=== PATIENT | female | born 2000 | race Caucasian/White ===

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

== ENCOUNTER → 2020-11-25 | Outpatient (CLI) | payer OTHER ==
[2020-11-25 15:42] LABS: FREE THYROXINE INDEX 3.2 % (1.3-4.8); THYROID STIMULATING HORMONE 1.23 uIU/ML (0.463-3.98); THYROXINE (T4) 10.5 UG/DL (6.0-11.6); TOTAL 25(OH) VITAMIN D 12.8 NG/ML (30.0-100.0)
== END ==
LOC: M LAB 13:58
PROVIDERS: ATTEND Nurse Practitioner Psychiatric/Mental Health
DX: E03.9 Hypothyroidism, unspecified (principal); E55.9 Vitamin D deficiency, unspecified

== ENCOUNTER → 2021-08-16 | Outpatient (REF) | payer OTHER | LOC: M WUC 17:45 | PROVIDERS: ATTEND Physician Assistant | DX: N39.0 Urinary tract infection, site not specified (principal) ==

== ENCOUNTER → 2021-09-17 | Outpatient (CLI) | payer OTHER ==
[2021-09-17 16:34] LABS: BASO % 0.6 % (0.0-1.0); EOS # 0.1 10^3/uL (0.0-0.5); EOS % 1.4 % (0.0-3.0); HEMATOCRIT 43.4 % (36.0-47.0); HEMOGLOBIN 13.4 g/dl (12.0-15.5); LYMPH # 1.5 10^3/uL (1.5-5.0); MEAN CORPUSCULAR HEMOGLOBIN 28.6 pg (27.0-33.0); MEAN CORPUSCULAR HGB CONC 30.9 g/dl (32.0-36.5); MEAN CORPUSCULAR VOLUME 92.5 fl (80.0-96.0); MONO # 0.6 10^3/uL (0.0-0.8); MONO % 8.7 % (2.0-8.0); NEUTROPHILS % 68.9 % (36.0-66.0); RED BLOOD COUNT 4.69 10^6/uL (4.00-5.40); WHITE BLOOD COUNT 7.3 10^3/uL (4.0-10.0)
[2021-09-17 16:54] LABS: HCG, SERUM QUALITATIVE NEGATIVE (NEGATIVE)
[2021-09-17 17:11] LABS: ALBUMIN 3.5 GM/DL (3.2-5.2); ALT/SGPT 25 U/L (12-78); BILIRUBIN,TOTAL 0.4 MG/DL (0.2-1.0); BLOOD UREA NITROGEN 12 MG/DL (7-18); CALCIUM LEVEL 8.7 MG/DL (8.5-10.1); CARBON DIOXIDE LEVEL 27 MEQ/L (21-32); CHLORIDE LEVEL 105 MEQ/L (98-107); CREATININE FOR GFR 0.74 MG/DL (0.55-1.30); FREE T4 1.07 NG/DL (0.76-1.46); GLOMERULAR FILTRATION RATE > 60.0 (>60); GLUCOSE, FASTING 77 MG/DL (70-100); IRON (FE) 111 UG/DL (50-170); PERCENT SATURATION 26.2 % (13.2-45.0); POTASSIUM SERUM 4.1 MEQ/L (3.5-5.1); SODIUM LEVEL 138 MEQ/L (136-145); TOTAL IRON BINDING CAPACITY 423 UG/DL (250-450); TOTAL PROTEIN 7.1 GM/DL (6.4-8.2)
[2021-09-18 00:18] LABS: HEMOGLOBIN A1c 4.7 %
== END ==
LOC: M WUC 11:40
PROVIDERS: ATTEND Physician Assistant
DX: E55.9 Vitamin D deficiency, unspecified (principal); Z68.31 Body mass index [BMI] 31.0-31.9, adult; Z30.011 Encounter for initial prescription of contraceptive pills

== ENCOUNTER → 2022-07-12 | Outpatient (CLI) | payer OTHER ==
[2022-07-12 13:08] LABS: BASO % 0.3 % (0.0-1.0); EOS # 0.2 10^3/uL (0.0-0.5); EOS % 2.7 % (0.0-3.0); HEMATOCRIT 43.9 % (36.0-47.0); HEMOGLOBIN 13.5 g/dl (12.0-15.5); LYMPH # 1.3 10^3/uL (1.5-5.0); LYMPH % 20.6 % (24.0-44.0); MEAN CORPUSCULAR HEMOGLOBIN 26.3 pg (27.0-33.0); MEAN CORPUSCULAR HGB CONC 30.8 g/dl (32.0-36.5); MEAN CORPUSCULAR VOLUME 85.4 fl (80.0-96.0); MONO # 0.4 10^3/uL (0.0-0.8); MONO % 6.1 % (2.0-8.0); NEUTROPHILS # 4.5 10^3/uL (1.5-8.5); PLATELET COUNT, AUTOMATED 240 10^3/uL (150-450); RED BLOOD COUNT 5.14 10^6/uL (4.00-5.40); WHITE BLOOD COUNT 6.4 10^3/uL (4.0-10.0)
[2022-07-12 13:21] LABS: HEMOGLOBIN A1c 4.8 % (4.0-6.0)
[2022-07-12 13:32] LABS: ALBUMIN 3.6 G/DL (3.2-5.2); ALKALINE PHOSPHATASE 83 U/L (46-116); ALT/SGPT 40 U/L (7.0-40); AST/SGOT 28 U/L (<34); BILIRUBIN,TOTAL 0.3 MG/DL (0.3-1.2); BLOOD UREA NITROGEN 7 MG/DL (9-23); CALCIUM LEVEL 9.2 MG/DL (8.5-10.1); CARBON DIOXIDE LEVEL 24 MMOL/L (20-31); CHLORIDE LEVEL 106 MMOL/L (98-107); GLOMERULAR FILTRATION RATE > 60.0 (>60); GLUCOSE, FASTING 98 MG/DL (60-100); POTASSIUM SERUM 3.9 MMOL/L (3.5-5.1); SODIUM LEVEL 139 MMOL/L (136-145); TOTAL PROTEIN 7.1 G/DL (5.7-8.2)
[2022-07-12 13:33] LABS: FOLATE 6.3 NG/ML (>5.4); PROLACTIN 4.74 NG/ML; THYROID STIMULATING HORMONE 2.968 uIU/ML (0.55-4.78)
[2022-07-12 13:34] LABS: FREE T4 0.84 NG/DL (0.89-1.76); TESTOSTERONE 28 NG/DL (14-76); VITAMIN B12 LEVEL 258 PG/ML (211-911)
== END ==
LOC: M LAB 12:16
PROVIDERS: ATTEND Physician Assistant
DX: E55.9 Vitamin D deficiency, unspecified (principal); R61 Generalized hyperhidrosis; Z68.41 Body mass index [BMI] 40.0-44.9, adult

== ENCOUNTER → 2022-07-23 | Outpatient (REF) | payer OTHER | LOC: M SFHCWAGY 17:46 | PROVIDERS: ATTEND Nurse Practitioner Family | DX: Z12.4 Encounter for screening for malignant neoplasm of cervix (principal) ==

== ENCOUNTER → 2022-08-15 | Outpatient (REF) | payer OTHER | LOC: M WUC 18:18 | PROVIDERS: ATTEND Student in an Organized Health Care Education/Training Program | DX: R30.0 Dysuria (principal) ==

== ENCOUNTER → 2022-11-03 | Outpatient (REF) | payer OTHER | LOC: M SFHCADAM 12:12 | PROVIDERS: ATTEND Physician Assistant | DX: R30.0 Dysuria (principal) ==

== ENCOUNTER → 2022-11-22 | Outpatient (REF) | payer OTHER | LOC: M SFHCADAM 12:17 | PROVIDERS: ATTEND Physician Assistant | DX: N39.0 Urinary tract infection, site not specified (principal) ==

== ENCOUNTER → 2023-09-29 | Outpatient (CLI) | payer OTHER ==
[~2023-09-29] MED LIST changes: -KLON0.5T PO; +KLON0.5T8 PO
[2023-09-29 14:03] LABS: BASO % 0.4 % (0.0-1.0); EOS # 0.3 10^3/uL (0.0-0.5); EOS % 3.8 % (0.0-3.0); HEMATOCRIT 42.8 % (36.0-47.0); HEMOGLOBIN 13.5 g/dl (12.0-15.5); LYMPH # 1.7 10^3/uL (1.5-5.0); LYMPH % 23.9 % (24.0-44.0); MEAN CORPUSCULAR HEMOGLOBIN 27.6 pg (27.0-33.0); MEAN CORPUSCULAR HGB CONC 31.5 g/dl (32.0-36.5); MEAN CORPUSCULAR VOLUME 87.5 fl (80.0-96.0); MONO # 0.6 10^3/uL (0.0-0.8); MONO % 8.1 % (2.0-8.0); NEUTROPHILS # 4.6 10^3/uL (1.5-8.5); NEUTROPHILS % 63.5 % (36.0-66.0); PLATELET COUNT, AUTOMATED 215 10^3/uL (150-450); RED BLOOD COUNT 4.89 10^6/uL (4.00-5.40); WHITE BLOOD COUNT 7.2 10^3/uL (4.0-10.0)
[2023-09-29 14:36] LABS: ALBUMIN 3.9 G/DL (3.2-5.2); ALKALINE PHOSPHATASE 80 U/L (46-116); ALT/SGPT 28 U/L (7.0-40); AST/SGOT 49 U/L (<34); BILIRUBIN,TOTAL 0.5 MG/DL (0.3-1.2); BLOOD UREA NITROGEN 7 MG/DL (9-23); CALCIUM LEVEL 9.4 MG/DL (8.5-10.1); CARBON DIOXIDE LEVEL 27 MMOL/L (20-31); CHLORIDE LEVEL 106 MMOL/L (98-107); CREATININE FOR GFR 0.55 MG/DL (0.55-1.30); FREE T4 1.29 NG/DL (0.89-1.76); GLOMERULAR FILTRATION RATE > 60.0 (>60); GLUCOSE, FASTING 79 MG/DL (60-100); POTASSIUM SERUM 4.5 MMOL/L (3.5-5.1); SODIUM LEVEL 138 MMOL/L (136-145); TOTAL PROTEIN 7.3 G/DL (5.7-8.2)
[2023-09-29 14:37] LABS: THYROID STIMULATING HORMONE 1.662 uIU/ML (0.55-4.78)
[2023-09-29 14:38] LABS: TOTAL 25(OH) VITAMIN D 19.1 NG/ML (20.0-100.0)
== END ==
LOC: M LAB 12:42
PROVIDERS: ATTEND Physician Assistant
DX: F98.8 Other specified behavioral and emotional disorders with onset usually occurring in childhood and adolescence (principal); Z68.34 Body mass index [BMI] 34.0-34.9, adult; E55.9 Vitamin D deficiency, unspecified

== ENCOUNTER → 2023-09-29 | Outpatient (REF) | payer OTHER | LOC: M SFHCADAM 12:39 | PROVIDERS: ATTEND Physician Assistant | DX: Z53.9 Procedure and treatment not carried out, unspecified reason (principal) ==

== ENCOUNTER → 2023-10-15 | Outpatient (REF) | payer OTHER ==
[2023-10-15 20:48] LABS: APPEARANCE, URINE HAZY (CLEAR); BACTERIA, URINE AUTO 2+ (NEGATIVE); BILIRUBIN, URINE AUTO NEGATIVE (NEGATIVE); BLOOD, URINE BLOOD NEGATIVE (NEGATIVE); COLOR, URINE YELLOW (YELLOW); GLUCOSE, URINE (UA) AUTO NEGATIVE (NEGATIVE); KETONE, URINE AUTO 1+ mg/dL (NEGATIVE); LEUKOCYTE ESTERASE, URINE AUTO NEGATIVE (NEGATIVE); MUCUS, URINE SMALL (NEGATIVE); NITRITE, URINE AUTO NEGATIVE (NEGATIVE); PROTEIN, URINE AUTO NEGATIVE (NEGATIVE); RBC, URINE AUTO 0 /HPF (0-3); SPECIFIC GRAVITY URINE AUTO 1.018 (1.002-1.035); SQUAMOUS EPITHELIAL CELL UR AU 13 /HPF (0-6); UROBILINOGEN, URINE AUTO 0.2 mg/dL (0.0-2.0); WBC, URINE AUTO 2 /HPF (0-3)
== END ==
LOC: M LAB REF 15:19
PROVIDERS: ATTEND Physician Assistant
DX: N39.0 Urinary tract infection, site not specified (principal)

== ENCOUNTER → 2023-10-19 | Outpatient (REF) | payer OTHER ==
[2023-10-20 15:33] LABS: Trichomonas vaginalis (AMP) NOT DETECTED (NEGATIVE)
[2023-10-20 15:56] LABS: GC DNA AMPLIFICATION NEGATIVE (NEGATIVE)
== END ==
LOC: M SFHCADAM 16:10
PROVIDERS: ATTEND Physician Assistant
DX: R30.0 Dysuria (principal)

== ENCOUNTER → 2023-11-02 | Outpatient (REF) | payer OTHER | LOC: M SFHCPLAZ 16:13 | PROVIDERS: ATTEND Physician Assistant | DX: N39.0 Urinary tract infection, site not specified (principal) ==

== ENCOUNTER → 2023-11-29 | Outpatient (REF) | payer OTHER | LOC: M SFHCPLAZ 09:45 | PROVIDERS: ATTEND Physician Assistant Medical | DX: R30.0 Dysuria (principal) ==

== ENCOUNTER → 2023-11-30 | Outpatient (CLI) | payer OTHER ==
[2023-11-30 19:22] LABS: HIV 1&2 SCREEN NEGATIVE (NEGATIVE)
== END ==
LOC: M WUC 12:32
PROVIDERS: ATTEND Physician Assistant Medical
DX: R03.0 Elevated blood-pressure reading, without diagnosis of hypertension (principal); N76.0 Acute vaginitis

== ENCOUNTER → 2023-12-01 | Outpatient (REF) | payer OTHER | LOC: M SFHCPLAZ 17:05 | PROVIDERS: ATTEND Physician Assistant Medical | DX: R30.0 Dysuria (principal) ==

== ENCOUNTER → 2023-12-22 | Outpatient (REF) | payer OTHER | LOC: M SFHCWAGY 10:15 | PROVIDERS: ATTEND Nurse Practitioner Family | DX: Z12.4 Encounter for screening for malignant neoplasm of cervix (principal); R87.612 Low grade squamous intraepithelial lesion on cytologic smear of cervix (LGSIL) ==

== ENCOUNTER → 2023-12-22 | Outpatient (CLI) | payer OTHER ==
[2023-12-22 16:57] LABS: BASO % 0.6 % (0.0-1.0); EOS # 0.2 10^3/uL (0.0-0.5); HEMATOCRIT 43.1 % (36.0-47.0); HEMOGLOBIN 13.4 g/dl (12.0-15.5); LYMPH # 1.5 10^3/uL (1.5-5.0); LYMPH % 22.6 % (24.0-44.0); MEAN CORPUSCULAR HGB CONC 31.1 g/dl (32.0-36.5); MEAN CORPUSCULAR VOLUME 90.2 fl (80.0-96.0); MONO # 0.5 10^3/uL (0.0-0.8); MONO % 8.4 % (2.0-8.0); NEUTROPHILS # 4.2 10^3/uL (1.5-8.5); NEUTROPHILS % 65.1 % (36.0-66.0); PLATELET COUNT, AUTOMATED 232 10^3/uL (150-450); RED BLOOD COUNT 4.78 10^6/uL (4.00-5.40); WHITE BLOOD COUNT 6.4 10^3/uL (4.0-10.0)
[2023-12-22 17:05] LABS: ERYTHROCYTE SEDIMENTATION RATE 25 mm/hr (0-20)
[2023-12-22 17:17] LABS: URIC ACID 6.1 MG/DL (3.1-7.8)
[2023-12-22 17:21] LABS: ALBUMIN 3.9 G/DL (3.2-5.2); ALKALINE PHOSPHATASE 76 U/L (35-104); ALT/SGPT 21 U/L (7.0-40); AST/SGOT 15 U/L (<34); BILIRUBIN,TOTAL 0.2 MG/DL (0.3-1.2); BLOOD UREA NITROGEN 7 MG/DL (9-23); CALCIUM LEVEL 9.5 MG/DL (8.5-10.1); CARBON DIOXIDE LEVEL 26 MMOL/L (20-31); CHLORIDE LEVEL 109 MMOL/L (98-107); GLOMERULAR FILTRATION RATE > 60.0 (>60); GLUCOSE, FASTING 84 MG/DL (60-100); POTASSIUM SERUM 3.8 MMOL/L (3.5-5.1); SODIUM LEVEL 143 MMOL/L (136-145); TOTAL PROTEIN 7.2 G/DL (5.7-8.2)
[2023-12-22 17:22] LABS: RHEUMATOID FACTOR QUANT < 3.5 IU/ML (<14)
[2023-12-26 14:13] LABS: ANA SCREEN, IFA NEGATIVE (NEGATIVE)
[2023-12-27 01:27] LABS: CYCLIC CITRULLINATED PEPTIDE < 16 UNITS (<20)
== END ==
LOC: M WUC 14:09
PROVIDERS: ATTEND Physician Assistant
DX: N30.90 Cystitis, unspecified without hematuria (principal); R21 Rash and other nonspecific skin eruption; M54.9 Dorsalgia, unspecified; R07.89 Other chest pain; L29.9 Pruritus, unspecified

== ENCOUNTER → 2024-01-24 | Outpatient (REF) | payer OTHER ==
[2024-01-24 15:29] LABS: APPEARANCE, URINE HAZY (CLEAR); BACTERIA, URINE AUTO NEGATIVE (NEGATIVE); BILIRUBIN, URINE AUTO NEGATIVE (NEGATIVE); BLOOD, URINE BLOOD NEGATIVE (NEGATIVE); COLOR, URINE YELLOW (YELLOW); GLUCOSE, URINE (UA) AUTO NEGATIVE (NEGATIVE); KETONE, URINE AUTO NEGATIVE (NEGATIVE); LEUKOCYTE ESTERASE, URINE AUTO NEGATIVE (NEGATIVE); MUCUS, URINE LARGE (NEGATIVE); NITRITE, URINE AUTO NEGATIVE (NEGATIVE); PROTEIN, URINE AUTO 1+ mg/dL (NEGATIVE); RBC, URINE AUTO 1 /HPF (0-3); SPECIFIC GRAVITY URINE AUTO 1.024 (1.002-1.035); SQUAMOUS EPITHELIAL CELL UR AU 5 /HPF (0-6); UROBILINOGEN, URINE AUTO 0.2 mg/dL (0.0-2.0); WBC, URINE AUTO 0 /HPF (0-3)
== END ==
LOC: M SMT 14:55
PROVIDERS: ATTEND Nurse Practitioner Family
DX: N39.0 Urinary tract infection, site not specified (principal)

== ENCOUNTER → 2024-01-25 | Outpatient (CLI) | payer OTHER ==
[~2024-01-25] MED LIST changes: +ALBU8.5H INH; +AMPH1CAP15 PO; +FLUO-290 PO; +HYDR50TA70 PO; +VITA200032 PO
== END ==
LOC: M RAD 10:59
PROVIDERS: ATTEND Physician Assistant
DX: M54.9 Dorsalgia, unspecified (principal); N30.90 Cystitis, unspecified without hematuria

== ENCOUNTER 2024-01-28 01:57 | Inpatient (IN) | payer MEDICAID, OTHER ==
[~2024-01-28] VITALS: Ht 165.1 cm; Wt 79.8 kg
[~2024-01-28 01:57] MED LIST changes: -ALBU8.5H INH; -AMPH1CAP15 PO; -FLUO-290 PO; -HYDR50TA70 PO; -VITA200032 PO
[2024-01-28] MEDS: NS (Normal Saline) 0.9% 1,000 ML IV ONE (02:20)
[2024-01-28 02:39] LABS: HEMOGLOBIN 13.7 g/dl (12.0-15.5); MEAN CORPUSCULAR HEMOGLOBIN 28.9 pg (27.0-33.0); MEAN CORPUSCULAR HGB CONC 32.6 g/dl (32.0-36.5); MEAN CORPUSCULAR VOLUME 88.6 fl (80.0-96.0); PLATELET COUNT, AUTOMATED 225 10^3/uL (150-450); RED BLOOD COUNT 4.74 10^6/uL (4.00-5.40)
[2024-01-28 02:56] LABS: ETHYL ALCOHOL (ETHANOL) 0.132 % (0.000-0.010)
[2024-01-28 02:57] LABS: SALICYLATE LEVEL < 3.0 MG/DL (<30)
[2024-01-28 03:04] LABS: ALBUMIN 3.8 G/DL (3.2-5.2); ALKALINE PHOSPHATASE 79 U/L (35-104); ALT/SGPT 24 U/L (7.0-40); AST/SGOT 21 U/L (<34); BILIRUBIN,DIRECT < 0.1 MG/DL (<0.4); BILIRUBIN,TOTAL 0.2 MG/DL (0.3-1.2); BLOOD UREA NITROGEN < 5 MG/DL (9-23); CALCIUM LEVEL 9.3 MG/DL (8.5-10.1); CARBON DIOXIDE LEVEL 26 MMOL/L (20-31); CHLORIDE LEVEL 108 MMOL/L (98-107); CREATININE FOR GFR 0.49 MG/DL (0.55-1.30); GLOMERULAR FILTRATION RATE > 60.0 (>60); GLUCOSE, FASTING 130 MG/DL (60-100); POTASSIUM SERUM 4.1 MMOL/L (3.5-5.1); SODIUM LEVEL 144 MMOL/L (136-145); THYROID STIMULATING HORMONE 3.675 uIU/ML (0.55-4.78); TOTAL PROTEIN 7.5 G/DL (5.7-8.2)
[2024-01-28 03:05] LABS: HCG, SERUM QUALITATIVE NEGATIVE (NEGATIVE)
[2024-01-28] MEDS ORDERED: CHARCOAL ACTIVATED LIQUID 25GM/120ML BTL As Ordered ONE (03:38)
[2024-01-28] MEDS: CHARCOAL ACTIVATED LIQUID 25GM/120ML BTL PO ONE (03:40)
[2024-01-28 04:08] LABS: BARBITURATES URINE NEGATIVE (NEGATIVE); BENZODIAZEPINES URINE NEGATIVE (NEGATIVE)
[2024-01-28 04:09] LABS: COCAINE METABOLITE URINE NEGATIVE (NEGATIVE); METHADONE URINE NEGATIVE (NEGATIVE); OPIATES URINE NEGATIVE (NEGATIVE); PHENCYCLIDINE URINE NEGATIVE (NEGATIVE)
[2024-01-28 04:10] LABS: AMPHETAMINES LEVEL URINE POSITIVE (NEGATIVE); CANNABINOIDS URINE POSITIVE (NEGATIVE)
[2024-01-28] MEDS ORDERED: HYDR50TA70 PO (05:37)
[2024-01-28] MEDS ORDERED: FLUO-290 PO (05:37)
[2024-01-28] MEDS ORDERED: AMPH1CAP15 PO (05:37)
[2024-01-28] MEDS ORDERED: VITA200032 PO (05:37)
[2024-01-28] MEDS ORDERED: ALBU8.5H INH (05:37)
[2024-01-28] MEDS ORDERED: HOME MED LIST COMPLETE! XX SCH (05:40)
[2024-01-28] MEDS: ONDANSETRON 4MG 2ML VIAL IV ONE (06:22)
[2024-01-28] MEDS: AMPHETAMINE/DEXTROAMPHETAMINE 5 MG *ER* CAPSULE (ADDERALL XR) PO SCH (09:25)
[2024-01-28] MEDS: VITAMIN D 1,000 INTERNATIONAL UNITS TABLET PO SCH (09:25)
[2024-01-28] MEDS ORDERED: MAALOX 30 ML SUSP *UDC PO PRN (10:15)
[2024-01-28] MEDS ORDERED: IBUPROFEN 400MG TAB PO PRN (10:15)
[2024-01-28] MEDS ORDERED: ACETAMINOPHEN 325 MG TAB PO PRN (10:15)
[2024-01-28] MEDS ORDERED: MOM 30ML SUSPENSION UDC PO PRN (10:15)
[2024-01-28] MEDS ORDERED: traZODone 50 MG TAB PO PRN (10:15)
[2024-01-28 13:19] VITALS: BP 134/81; TEMP 97.1; O2SAT 99
[2024-01-28 15:38] VITALS: BP 130/82; TEMP 96.9; O2SAT 100
[2024-01-28] MEDS: diphenhydrAMINE 25MG CAP PO PRN (20:23)
[2024-01-29 06:43] VITALS: BP 136/70; TEMP 97.7; O2SAT 98
[2024-01-29 16:31] VITALS: BP 116/72; TEMP 97.7; O2SAT 98
[2024-01-30 06:40] VITALS: BP 132/66; TEMP 97.5; O2SAT 100
== END 2024-01-30 16:21 | disposition home or self-care (01) | DRG 754 ==
LOC: M ED 01:57 → M ED INP 10:12 → M PSY 13:14
PROVIDERS: ADMIT Psychiatry & Neurology Psychiatry; ATTEND Psychiatry & Neurology Psychiatry
DX: F32.A Depression, unspecified (principal); F10.10 Alcohol abuse, uncomplicated; N30.20 Other chronic cystitis without hematuria; F15.90 Other stimulant use, unspecified, uncomplicated; Z79.899 Other long term (current) drug therapy

== ENCOUNTER → 2024-04-04 | Outpatient (CLI) | payer OTHER ==
[~2024-04-04] MED LIST changes: +ALBU8.5H INH; +AMPH1CAP15 PO; +FLUO-290 PO; +HYDR50TA70 PO; +VITA200032 PO
== END ==
LOC: M RAD 13:36
PROVIDERS: ATTEND Physician Assistant
DX: N92.0 Excessive and frequent menstruation with regular cycle (principal); N88.8 Other specified noninflammatory disorders of cervix uteri

== ENCOUNTER → 2024-04-26 | Outpatient (REF) | payer OTHER | LOC: M SFHCADAM 14:02 | PROVIDERS: ATTEND Physician Assistant | DX: E55.9 Vitamin D deficiency, unspecified (principal) ==

== ENCOUNTER → 2024-05-14 | Outpatient (REF) | payer OTHER ==
[2024-05-14 15:31] LABS: APPEARANCE, URINE CLEAR (CLEAR); BACTERIA, URINE AUTO 1+ (NEGATIVE); BILIRUBIN, URINE AUTO NEGATIVE (NEGATIVE); BLOOD, URINE BLOOD NEGATIVE (NEGATIVE); COLOR, URINE STRAW (YELLOW); GLUCOSE, URINE (UA) AUTO NEGATIVE (NEGATIVE); KETONE, URINE AUTO NEGATIVE (NEGATIVE); LEUKOCYTE ESTERASE, URINE AUTO NEGATIVE (NEGATIVE); MUCUS, URINE SMALL (NEGATIVE); NITRITE, URINE AUTO NEGATIVE (NEGATIVE); PROTEIN, URINE AUTO NEGATIVE (NEGATIVE); RBC, URINE AUTO 0 /HPF (0-3); SPECIFIC GRAVITY URINE AUTO 1.006 (1.002-1.035); SQUAMOUS EPITHELIAL CELL UR AU 3 /HPF (0-6); UROBILINOGEN, URINE AUTO 0.2 mg/dL (0.0-2.0); WBC, URINE AUTO 1 /HPF (0-3)
== END ==
LOC: M SMT 15:16
PROVIDERS: ATTEND Nurse Practitioner Family
DX: R39.15 Urgency of urination (principal)

== ENCOUNTER → 2024-10-25 | Outpatient (REF) | payer OTHER ==
[2024-10-25 17:28] LABS: ALT/SGPT 27 U/L (7.0-40); AST/SGOT 26 U/L (<34); CALCIUM LEVEL 9.2 MG/DL (8.5-10.1); CARBON DIOXIDE LEVEL 29 MMOL/L (20-31); CHLORIDE LEVEL 106 MMOL/L (98-107); CREATININE FOR GFR 0.55 MG/DL (0.55-1.30); GLOMERULAR FILTRATION RATE > 90.0 (>60); POTASSIUM SERUM 4.8 MMOL/L (3.5-5.1); RHEUMATOID FACTOR QUANT < 3.5 IU/ML (<14); SODIUM LEVEL 142 MMOL/L (136-145)
[2024-10-25 17:29] LABS: C REACTIVE PROTEIN QUANTITATIV < 0.50 MG/DL (<1.0)
[2024-10-25 17:36] LABS: PLATELET COUNT, AUTOMATED 205 10^3/uL (150-450)
[2024-10-25 17:46] LABS: ERYTHROCYTE SEDIMENTATION RATE 32 mm/hr (0-20)
== END ==
LOC: M SFHCADAM 14:00
PROVIDERS: ATTEND Physician Assistant
DX: F98.8 Other specified behavioral and emotional disorders with onset usually occurring in childhood and adolescence (principal); R21 Rash and other nonspecific skin eruption; R53.83 Other fatigue

== ENCOUNTER → 2024-11-28 | Outpatient (REF) | payer OTHER | LOC: M LAB REF 17:06 | PROVIDERS: ATTEND Physician Assistant | DX: J02.9 Acute pharyngitis, unspecified (principal) ==